=== PATIENT | male | born 1965 | race Caucasian/White ===

== ENCOUNTER 2017-07-16 14:15 | Emergency (ER) | payer OTHER, SELFPAY ==
[2017-07-16 14:15] VITALS: BP 167/96; PULSE 68; RESP 16; TEMP 36.4; O2SAT 97; BMI 36.2
--- NOTE | 2017-07-16 15:04 | ED.VISSUMM ---
- ER Visit Summary Date of Service: 07/16/17 Chief Complaint: Abrupt onset of right lower quadrant pain History of Present Illness: The patient is a 52 M who presents with abrupt onset of right lower quadrant pain that started at 1030. He states he has nausea without vomiting, diarrhea or constipation. He denies black or bloody stool. He denies prior episode of pain. He denies dysuria, frequency, urgency or hematuria. He has no history of renal ureterolithiasis. He denies any testicular pain. He denies any bulge or hernia. He denies any back or flank pain. He denies fever, chills night sweats. He denies any ocular, auditory or visual symptoms. He denies any cardiovascular respiratory symptoms. He denies myalgias or arthralgias. He has no other complaints. He is a former smoker. Physical Examination: Vital signs remarkable for an elevated blood pressure 167/96. He appears slightly uncomfortable. Head is atraumatic normocephalic. Pupils are equal round reactive. Extraocular muscles are intact. TMs are pearly white with landmarks noted. Nares patent with no drainage. Posterior pharynx without erythema or exudate. Uvula is midline. There is no dysphonia or dysphasia. Trachea is midline. There is no stridor with auscultation of the neck. Heart is regular without murmur, gallop or rub. S1 and S2 are normal. Lungs are clear to auscultation with good movement of air bilaterally. Abdomen is slightly distended and tympanitic with normal bowel sounds. He has tenderness in right lower quadrant with equivocal guarding no percussion or rebound tenderness. Denies cough tenderness. There is no evidence of umbilical or inguinal hernia. There is no inguinal lymphadenopathy. He has no CVA tenderness. Test Results: Count is 14,000 with 87 segs. BMP is marked for glucose of 164, creatinine 1.39 with a GFR 57. CT of the abdomen and pelvis with p.o. and IV contrast reveals a 3 mm right UVJ stone with hydroureter and hydronephrosis and perinephric stranding. Emergency Department Course and Treatment: IV was established and he was medicated with 4 mg of Zofran IV push and 8 mg of morphine IV push. To evaluate his right BMP, CBC and UA were obtained. Differential includes lower quadrant abdominal pain a ureterolithiasis, appendicitis, inflammatory bowel disorder and ossific abdominal pain. Treatment Plan: She has right lower quadrant pain with leukocytosis CT of the abdomen pelvis with p.o. and IV contrast was ordered. Disposition: Discharged to home with home pack of oxycodone and prescription for Percocet, Flomax and anti-inflammatory. He was referred to urologist. Impression: Acute right lower quadrant abdominal pain secondary to obstructing 3 mm right UVJ stone with hydroureter and nephrosis This note was generated with [employer] dictation software. It may contain incorrect words, spelling, and punctuation that were not noted in review of the chart prior to signing ED Disposition - Plan for ED Patient: Disposition: Home or Assisted Living Chief Complaint: Abd Pain Instructions: ED Stone Renal W Colic Prescriptions: Oxycodone HCl/Acetaminophen [Percocet 7.5-325 mg Tablet] 1 tab PO Q6H PRN PRN 7 Days #30 tab PRN Reason: Pain Tamsulosin HCl [Flomax] 0.4 mg PO DAILY #7 cap Naproxen [Naprosyn] 500 mg PO BID #14 tab Referrals: Karishma Vaughn [Patient Care Assist - TCU/RU] - Antwan Crandall MD [STAFF PHYSICIAN] - 5-7 Days
[2017-07-16 15:35] LABS: Absolute Lymphocyte Count 1.31 X10^3/ul (0.83-4.51); Absolute Neutrophil Count 12.1 X10^3/uL (2.0-7.7); Basophil# 0.03 X10^3/uL; Basophil% 0.2 % (0-1); Eosinophil# 0.02 X10^3/uL; Eosinophils% 0.1 % (0-5); Hematocrit 45.3 % (40-54); Hemoglobin 15.1 g/dl (13.0-16.5); Lymphocyte # 1.31 X10^3/ul (4.0); Lymphocyte % 9.3 % (19-41); Mean Corp Hgb Conc 33.3 g/gl (32-36); Mean Corpuscular Hgb 29.5 pg (27.0-32.0); Mean Corpuscular Volume 88.6 fL (80-94); Mean Platelet Vol. 10.1 fl (6.2-12.0); Monocyte# 0.49 X10^3/uL; Monocyte% 3.5 % (0-10); Neutrophil # 12.13 X10^3/uL (2.7-7.7); Neutrophil % 86.6 % (47-70); Platelet Count 272 K/mm3 (150-450); RBC Distribution Width CV 13.6 % (11.6-14.6); RBC Distribution Width SD 43.8 fl (35.1-43.9); Red Blood Count 5.11 M/mm3 (4.6-6.2)
[2017-07-16] MEDS: Ondansetron 4 MG/2 ML Vial IV (15:42)
[2017-07-16] MEDS: morphine 8 MG/ML Syringe IV (15:42)
[2017-07-16] MEDS: 0.9% Normal Saline 1,000 ML 1000 ML IV (15:42)
[2017-07-16 15:49] LABS: Anion Gap 9 (5-15); BUN 15 mg/dL (7-18); BUN/Creat Ratio 10.8 RATIO (10-20); Calcium,Total 9.5 mg/dL (8.5-10.1); Chloride 106 mmol/L (98-107); Creatinine, Serum 1.39 mg/dL (0.70-1.30); EST Glomerular Filtration Rate 57 mL/min (>60); Est Glom Filt Rate - Afr Amer 69 mL/min (>60); Estimated Creatinine Clearance 64.71 ml/min; Glucose 164 mg/dL (74-106); Potassium 4.2 mmol/L (3.5-5.1); Sodium Level 139 mmol/L (136-145)
[2017-07-16 15:54] LABS: POSITIVE COUNT NO; POSITIVE DIFFERENTIAL NO; POSITIVE MORPHOLOGY NO
[2017-07-16 16:17] VITALS: BP 168/90; PULSE 87; RESP 16; O2SAT 100
--- NOTE | 2017-07-16 16:17 | CT_ITS ---
STUDY: CT ABDOMEN AND PELVIS WITH CONTRAST REASON FOR EXAM: Male, 52 years old. Right lower quadrant pain RADIATION DOSAGE (If Supplied By Facility): CTDIvol = ( 18.71 ) mGy, DLP = ( 1287.28 ) mGycm TECHNIQUE: Transaxial images were obtained from the dome of the diaphragm to the symphysis pubis without oral contrast. 100 ml of Isovue 370 contrast was administered. Sagittal and coronal images were reconstructed. Individualized dose optimization techniques were used for this CT. COMPARISON: None. FINDINGS: The visualized lung bases are unremarkable. The visualized portions of the heart are within normal limits. Normal liver. Normal gallbladder and extrahepatic biliary system. Normal spleen. Normal pancreas. Normal bilateral adrenal glands. Mild hydronephrosis of the right kidney with very mild right hydroureter. Right perinephric stranding. Normal left kidney. Normal visualized stomach. Normal small intestine. Normal colon. The appendix is visualized and appears normal. Calcified abdominal aorta. Normal inferior vena cava. Normal retroperitoneum. There is a 3 mm stone at the intramural segment of the right UVJ of the urinary bladder. Fatty density at the inguinal canals, left more than right. Small fatty umbilical hernia of the abdominal wall. Normal osseous structures. CT/Abdomen/Pelvis WITH Contrast IMPRESSION: Mild right hydronephrosis and hydroureter with an obstructive stone at the right UVJ. Right perinephric stranding. Electronically Signed: Shravan Ovalle DO at 19:03 EDT Tel [phone], Service support ,
[2017-07-16 17:36] LABS: Bacteria 0 SEEN /hpf (None Seen); Color, Urine Yellow (Yellow); Glucose, Dipstick Normal (Normal); Ketone-Dipstick 15 mg/dl (Negative); Leukocyte Esterase-Dipstick Negative /ul (Negative); Mucous, Urine 0 SEEN /hpf (<or=2+); Nitrite-Dipstick Negative (Negative); Occult Blood-Urine 250 /ul (Negative); Protein-Dipstick 15 mg/dl (Negative); Squamous Epithelial Cells - UA 0 SEEN /hpf (0-5); Urine Bilirubin Dipstick Negative (Negative); Urine Clarity Sl. Cloudy (Clear); Urine Urobilinogen Normal (Normal); White Blood Cells 0 SEEN /hpf (0-5)
[2017-07-16 17:41] LABS: Red Blood Cells-Urine 50-100 SEEN /hpf (0-5)
[2017-07-16 18:51] VITALS: BP 168/107; PULSE 75; RESP 16; O2SAT 100
[2017-07-16] MEDS: morphine 8 MG/ML Syringe 6 MG IV (19:03)
[2017-07-16 20:13] VITALS: BP 154/91; PULSE 74; RESP 16; O2SAT 93
[2017-07-16] MEDS: Tamsulosin HCl 0.4 MG Capsule PO (21:33)
[2017-07-16] MEDS: oxyCODONE 5 MG Tablet PO ×2 (21:33)
[2017-07-16 21:35] VITALS: BP 153/87; PULSE 76; RESP 18; O2SAT 97
== END 2017-07-16 21:36 | disposition home or self-care (01) ==
PROVIDERS: Emergency Provider Emergency Medicine
DX: N13.2 Hydronephrosis with renal and ureteral calculous obstruction (principal); Z87.891 Personal history of nicotine dependence
CPT/HCPCS: 74177; 80048; 81001; 85025; 96361; 96374; 96375; 96376; 99285; J7030; Q9967; A4216; J2405